=== PATIENT | female | born 1990 | race Caucasian/White ===

== ENCOUNTER 2022-08-17 14:12 | Emergency (ER) | payer OTHER, SELFPAY ==
[2022-08-17 14:23] VITALS: BP 136/79; PULSE 98; RESP 18; TEMP 36.7; O2SAT 100; BMI 24.6
--- NOTE | 2022-08-17 14:50 | ED.ABDPAIN ---
HPI - Abdominal Pain General Time Seen by Provider: 14:50 Date Seen: 08/17/22 Chief Complaint: Abdominal Pain Stated Complaint: Eptopic Time Seen by Provider: 08/17/22 14:50 Source: patient and RN notes reviewed Mode of arrival: ambulatory Limitations: no limitations History of Present Illness HPI narrative: Lina is a very pleasant 32-year-old female at approximately 7 weeks +4 days based on an LMP of 06/25/2022 who comes to the emergency room at the suggestion of her OBGYN for an ultrasound. Patient notes that for a few weeks she has had lower abdominal and back pain and yesterday had right lower quadrant pain. She states today it is actually a little bit better than it has been. She notes that the pain in the right lower quadrant when it had occurred we did radiate into the back. This is not been associated with dysuria hematuria or any spotting. Patient notes that this is her 1st . Last week she was seen in [place] at an emergency room for this discomfort. At that time and ultrasound did not show an IUP. Because of the ongoing pain OBGYN center here for repeat ultrasound to ensure that she did not have an ectopic . Patient denies vomiting fever or any other illness. She has no diarrhea and no dysuria. He has not had any recent trauma. She states that she has had discomfort like this in the past and it was usually bacterial vaginosis but she was recently checked for that and it was not. However, she does continue to take the antibiotic prescribed to her. Related Data Home Medications Medication Instructions Recorded Confirmed No Known Home Medications 08/17/22 08/17/22 Allergies Allergy/AdvReac Type Severity Reaction Status Date / Time No Known Drug Allergies Allergy Verified 08/17/22 14:27 Review of Systems Status of ROS Reports: 10 or more systems reviewed and unremarkable except as noted in History and below Const Denies: fever or chills ENMT Denies: throat pain or difficulty swallowing Cardio Denies: chest pain, swelling of feet/ankles or shortness of breath with exertion Resp Denies: shortness of breath or cough GI Reports: abdominal pain; Denies: nausea, vomiting, diarrhea or difficulty swallowing Denies: painful urination or urinary frequency Musculo Reports: back pain (Occasionally) Neuro Denies: headache Exam Narrative: Exam Narrative: Patient is alert and oriented. Very pleasant soft-spoken female in no acute distress. Range of motion of neck is full. Heart with regular rate and rhythm without murmur or rub. Lungs are clear to auscultation. Abdomen is soft no significant tenderness elicited. No peritoneal signs. No evidence of hernia. Straight leg raise internal external rotation of the hip did not increase discomfort. No peritoneal signs Const: Vital Signs, click to edit/add: Vital Signs - 24 hr 08/17/22 14:23 Temperature 98.0 F Pulse Rate [Right Pulse Oximeter] 98 Respiratory Rate 18 Blood Pressure [Ri ght Upper Arm] 136/79 Pulse Oximetry 100 Oxygen Delivery Me thod Room Air Documenting provider has reviewed patient's vital signs: yes Course Course Hospital Course: Will check laboratory values to include a CBC, comprehensive, lipase, amylase, CRP, urinalysis as well as get a pelvic ultrasound. Reevaluation(s) Reevaluation #1: We were able to obtain information from [facility] in [place] where patient was seen last week. At that time they did not do an hCG. We have ascertained that patient is A positive blood type here Pelvic ultrasound showed endometrial thickening but no gestational sac was noted and no pole was seen. Vital Signs Vital signs: Initial Vital Signs Temperature 98.0 F 08/17/22 14:23 Temperature Source Temporal Artery Scan 08/17/22 14:23 Pulse Rate 98 08/17/22 14:23 Respiratory Rate 18 08/17/22 14:23 Blood Pressure 136/79 08/17/22 14:23 Blood Pressure Mean 98 08/17/22 14:23 Blood Pressure Position Sitting 08/17/22 14:23 Pulse Oximetry 100 08/17/22 14:23 Oxygen Delivery Method 08/17/22 14:23 Vital Signs Temperature 98.0 F 08/17/22 14:23 Pulse Rate 98 08/17/22 14:23 Respiratory Rate 18 08/17/22 14:23 Blood Pressure 136/79 08/17/22 14:23 Pulse Oximetry 100 08/17/22 14:23 Oxygen Delivery Method 08/17/22 14:23 Temperature 98.0 F 08/17/22 14:23 Pulse Rate 98 08/17/22 14:23 Respiratory Rate 18 08/17/22 14:23 Blood Pressure 136/79 08/17/22 14:23 Pulse Oximetry 100 08/17/22 14:23 Oxygen Delivery Method 08/17/22 14:23 MDM - Abdominal Pain MDM Narrative Medical decision making narrative: 1. Pelvic pain-at this time intrauterine is not identified. No evidence of adnexal abnormalities. Further cytopathology technologist was able to see appendix that was not dilated. HCG 14,618. At the pleasure of speaking with an RN at [facility] in [place]. I did share that the ultrasound was reassuring but did show that perhaps dates are off. At this time we are seeing an intrauterine at approximately 5 weeks 6 days no pole. There is no evidence of free fluid and a quick look at the appendix showed no evidence of thickening. At this time I do sure this with patient but and I am unable to explain her abdominal discomfort. Certainly, no evidence of peritoneal signs or a surgical abdomen at this time. Patient is instructed to follow-up next week with her OBGYN for recheck. Radiology suggests repeat ultrasound in 11 days time. Patient is instructed to return to the emergency room for any spotting, vaginal bleeding, onset of fever, worsening symptoms. 2. Disposition-patient is discharged home. At this time no evidence of appendicitis, leukocytosis, electrolyte abnormality, kidney dysfunction, elevation of amylase lipase or ectopic or UTI. Further, no evidence of ovarian torsion. Medical Records Attestation: I reviewed the patient's medical records. Medical records narrative: Discussed patient's past medical history with RN at [facility]. Also able to review records from [place] where patient was seen 1 week ago. Lab Data Attestation: I reviewed the patient's lab results. Labs: Lab Results 08/17/22 08/17/22 08/17/22 Range/Units 15:04 15:55 15:55 WBC 10.98 (4.50-11.00) K/uL RBC 4.52 (4.00-5.20) m/uL Hgb 13.9 (12.0-16.0) gm/dL Hct 41.2 (33.0-51.0) % MCV 91 (80-100) fL MCH 31 (26-34) pg MCHC 34 (32-36) gm/dL RDW Coeff of Preeti 12.2 (11.5-15.5) % Plt Count 296 (140-440) K/uL Neut % (Auto) 65.4 (42.0-72.0) % Lymph % (Auto) 26.0 (20-44) % Greenlee % (Auto) 6.9 (0.0-11.0) % Eos % (Auto) 0.9 (0.0-7.0) % Baso % (Auto) 0.6 (0.0-3.0) % Neut # (Auto) 7.17 H (1.7-7.0) K/uL Lymph # (Auto) 2.86 (0.90-2.90) K/uL Greenlee # (Auto) 0.80 (0.00-0.90) K/UL Eos # (Auto) 0.10 (0.00-0.50) K/uL Baso # (Auto) 0.07 (0.00-0.30) K/uL Abs Immat Gran (auto) 0.02 (0.00-0.30) K/uL Imm/Tot Granulo (auto) 0.2 % Sodium 136 (135-149) mmol/L Potassium 4.2 (3.6-5.1) mmol/L Chloride 106 (96-114) mmol/L Carbon Dioxide 23 (20-32) mmol/L BUN 15 (5-24) mg/dL Creatinine 0.7 (0.5-1.5) mg/dL Estimated Creat Clear 87.87 Estimated GFR 119 ml/min Glucose 92 (60-115) mg/dL Calcium 9.2 (8.4-10.6) mg/dL Total Bilirubin 0.4 (0.1-1.5) mg/dL AST 23 (12-35) U/L ALT 22 (4-35) U/L Alkaline Phosphatase 40 (40-150) U/L Total Protein 7.2 (6.0-8.3) g/dL Albumin 4.4 (3.3-5.0) g/dL Amylase 79 (18-89) U/L Lipase 78 (23-300) U/L HCG, Quant 24000.00 mIU/mL Urine Color Yellow (Yellow) Urine Appearance Clear (Clear) Urine pH 7.0 (5.0-8.5) Ur Specific [place] 1.025 (1.000-1.030) Urine Protein Negative (Negative) Urine Glucose (UA) Negative (Negative) Urine Ketones Trace A (Negative) Urine Blood Negative (Negative) Urine Nitrite Negative (Negative) Urine Bilirubin Negative (Negative) Urine Urobilinogen 0.2 (0.2-1.0) Ur Leukocyte Esterase Negative (Negative) Urine RBC 0-2 (0-2) Urine WBC 0-2 (0-5) Ur Squamous Epith Cells Moderate A (None-Few) Urine Bacteria Few A (None) Imaging Data OB ultrasound: Attestation: I have reviewed the pertinent imaging results. Radiologist's impression: Single intrauterine gestational sac corresponding to a gestational age of 5 weeks 6 days. The clinical gestational age by LMP is 7 weeks 4 days. 2. No pole identified. This could be due to early dates. Recommend follow-up ultrasound in 11 days or more to assess viability. 3. Corpus luteum right ovary. 4. Normal appearing appendix. Discharge Plan Discharge Clinical Impression: Pelvic pain affecting in first trimester, antepartum Patient Disposition: Home, Self-Care Condition: Unchanged Additional Instructions: Follow-up with your OBGYN physician. Copy of your ultrasound is available to go home with you today. We also have the notes from it the visit in [place] which we will provide to you. Turned to the emergency room for worsening symptoms and as needed. Prescriptions: No Action No Known Home Medications Follow Up/Referrals: Provider,Not a Local [Primary Care Provider] - Stand Alone Forms: [employer] Info Instructions
--- NOTE | 2022-08-17 15:04 | CRLHL7_ITS ---
For Patients: As a result of the Century Cures Act, medical imaging exams and procedure reports are released immediately into your electronic medical record. You may view this report before your referring provider. If you have questions, please contact your health care provider. INDICATION: Right lower quadrant pain and . LMP 06/25/2022. COMPARISON: None. TECHNIQUE: Real-time arevalo-scale imaging of the pelvis was performed. FINDINGS: Sonographic imaging demonstrates a single intrauterine gestational sac. The mean sac diameter measures 1.2 cm which corresponds to a gestational age of 5 weeks 6 days. No pole identified. There is a normal-appearing yolk sac. The placenta has not yet developed. No evidence of a perigestational hemorrhage. The cervix appears closed. The right ovary measures 4.7 x 2.3 x 3.4 cm and the left ovary measures 2.6 x 1.7 x 2.0 cm. Blood flow is seen within both ovaries. There is a 2.3 cm corpus luteum in the right ovary. Normal appearing appendix measuring 4 mm in diameter. No free fluid in the cul-de-sac. IMPRESSION: 1. Single intrauterine gestational sac corresponding to a gestational age of 5 weeks 6 days. The clinical gestational age by LMP is 7 weeks 4 days. 2. No pole identified. This could be due to early dates. Recommend follow-up ultrasound in 11 days or more to assess viability. 3. Corpus luteum right ovary. 4. Normal appearing appendix. Dictated by Aleyda Hendricks MD @ 08/17/2022 5:14:38 PM (Electronically Signed)
[2022-08-17 15:24] LABS: Appearance Urine Clear (Clear); Bilirubin Urine Negative (Negative); Blood Urine Negative (Negative); Color Urine Yellow (Yellow); Glucose Urine Negative (Negative); Ketones Urine Trace (Negative); Leukocyte Esterase Urine Negative (Negative); Nitrite Urine Negative (Negative); Protein Urine Negative (Negative); Specific Gravity Urine 1.025 (1.000-1.030); Urobilinogen Urine 0.2 (0.2-1.0)
[2022-08-17 15:35] LABS: Bacteria Urine Few; RBC Urine 0-2 (0-2); Squamous Epithelial Cell Urine Moderate (None-Few); WBC Urine 0-2 (0-5)
[2022-08-17 16:01] LABS: Basophils Absolute Auto 0.07 K/uL (0.00-0.30); Basophils Percent Auto 0.6 % (0.0-3.0); Eosinophils Percent Auto 0.9 % (0.0-7.0); Hematocrit 41.2 % (33.0-51.0); Hemoglobin* 13.9 gm/dL (12.0-16.0); Immature Granulocytes Abs Auto 0.02 K/uL (0.00-0.30); Immature Granulocytes Pct Auto 0.2 %; Lymphocytes Absolute Auto 2.86 K/uL (0.90-2.90); Mean Corpuscular HGB Conc 34 gm/dL (32-36); Mean Corpuscular Hemoglobin 31 pg (26-34); Mean Corpuscular Volume 91 fL (80-100); Monocytes Percent Auto 6.9 % (0.0-11.0); Neutrophils Absolute Auto 7.17 K/uL (1.7-7.0); Neutrophils Percent Auto 65.4 % (42.0-72.0); Platelet Count* 296 K/uL (140-440); RDW Coefficient of Variation % 12.2 % (11.5-15.5); Red Blood Count 4.52 m/uL (4.00-5.20); White Blood Count* 10.98 K/uL (4.50-11.00)
[2022-08-17 16:13] LABS: Slide Review Reflex No
[2022-08-17 16:14] LABS: Albumin* 4.4 g/dL (3.3-5.0); Chloride* 106 mmol/L (96-114); Potassium* 4.2 mmol/L (3.6-5.1); Sodium* 136 mmol/L (135-149)
[2022-08-17 16:16] LABS: Amylase* 79 U/L (18-89)
[2022-08-17 16:17] LABS: Alanine Aminotransferase* 22 U/L (4-35); Alkaline Phosphatase* 40 U/L (40-150); Aspartate Amino Transferase* 23 U/L (12-35); Bilirubin Total* 0.4 mg/dL (0.1-1.5); Blood Urea Nitrogen* 15 mg/dL (5-24); Calcium* 9.2 mg/dL (8.4-10.6); Carbon Dioxide* 23 mmol/L (20-32); Creatinine* 0.7 mg/dL (0.5-1.5); Est. Creatinine Clearance* 87.87; Estimated Glomerular Filt Rate 119 ml/min; Glucose* 92 mg/dL (60-115); Lipase* 78 U/L (23-300); Total Protein* 7.2 g/dL (6.0-8.3)
== END 2022-08-17 17:40 | disposition home or self-care (01) ==
PROVIDERS: Emergency Provider Family Medicine
DX: R10.2 Pelvic and perineal pain (principal); O36.71X0 Maternal care for viable fetus in abdominal pregnancy, first trimester, not applicable or unspecified
CPT/HCPCS: 36415; 76801; 76817; 80053; 81001; 82150; 83690; 84702; 85025; 87086; 99284